=== PATIENT | male | born 1960 | race African-American/Black ===

== ENCOUNTER 2017-03-09 15:38 | Emergency (ER) | payer OTHER ==
--- NOTE | ~2017-03-09 | CR72 ---
[facility] A Service of [facility] & [facility] RADIOLOGY TEXT RESULTS PATIENT: BRIANA ALFORD LOCATION: [facility] : 58 UNIT #: [id number] AGE: [address]: Marc Mcarthur MD SEX: M ORDER DR: [id number] [facility] [address] [place], [place] [address] [id number] E MR#: [id number] Acc #: [id number] NAME: BRIANA ALFORD : 1960 SEX: M STUDY DATE/TIME: 03/09/2017 16:16 UNIT: [facility] ROOM: STUDY DESCRIPTION: CR Chest Single View Portable Attending Physician: Marc Mcarthur M.D. Ordering Physician: Marc Mcarthur M.D. Primary Care Physician: Riley Gomez M.D. MEDICAL IMAGING REPORT This report is preliminary unless electronic signature is present EXAM Portable chest HISTORY Shortness of air and left side chest pain for 2 months. FINDINGS A single AP portable view of the chest shows both lungs to be clear. The heart is normal in size. The mediastinal contour is normal. No significant bone abnormalities are seen. IMPRESSION Normal portable chest. Dictated by... Frank Garrison M.D. THIS IS AN ELECTRONICALLY VERIFIED REPORT Frank Garrison M.D. at 03/09/2017 10:50 PM DFL/mary TD: 03/09/2017 18:59 JOB #: [id number] MEDICAL IMAGING REPORT Page 1 of 1 COPY
--- NOTE | ~2017-03-09 | EKG ---
PATIENT: BRIANA ALFORD UNIT #: [id number] Ventricular Rate: 74 BPM Atrial Rate: 74 BPM P-R Interval: 134 ms QRS Duration: 92 ms Q-T Interval: 396 ms QTC Calculation(Bezet): 439 ms P Westover: 32 degrees Calculated R Westover: 12 degrees Calculated T Westover: 54 degrees Diagnosis Line: Normal sinus rhythm Diagnosis Line: Nonspecific T wave abnormality Diagnosis Line: Abnormal ECG Diagnosis Line: When compared with ECG of 22-MAR-2012 16:31, Diagnosis Line: ST no longer depressed in Anterior leads Diagnosis Line: Nonspecific T wave abnormality no longer evident Diagnosis Line: in Inferior leads Diagnosis Line: Confirmed by JESUS ASHLEY MD ([id number]) on Diagnosis Line: 03/10/2017 7:18:48 AM INTERPRETING : REBA
[~2017-03-09 15:38] MED LIST: CHEWABLE ASPIRI81 MG PO; HCTZ PO; LISINOPRIL PO; NITROGLYGERIN0.4 MG SL; NORCO 5/325 TAB1 TAB PO; NORVASC PO; TOPROL XL PO; ZITHROMAX PO
[2017-03-09 15:58] LABS: BASOPHIL# 0.1 X10e3 (0-0.3); EOSINOPHIL# 0.1 X10e3 (0-0.7); EOSINOPHIL% 1.8 % (0.0-7.0); HEMATOCRIT 41.3 % (38.0-50.0); HEMOGLOBIN 12.9 gm/dL (13.0-16.0); LYMPHOCYTE# 1.8 X10e3 (1.0-3.5); LYMPHOCYTE% 23.2 % (17.0-45.0); MEAN CELL VOLUME 85.8 FL (83-96); MEAN CORPUSCULAR HEMOGLOBIN 26.7 PG (28-34); MEAN CORPUSCULAR HGB CONC 31.2 g/dL (30-36); MEAN PLATELET VOLUME 7.1 FL (6.5-11.5); MONOCYTE# 0.8 X10e3 (0-1.0); MONOCYTE% 10.8 % (3.0-12.0); NEUTROPHIL# 4.9 X10e3 (1.5-7.1); NEUTROPHIL% 63.2 % (40-75); PLATELET COUNT 261 X10e3 (140-420); RED BLOOD COUNT 4.81 X10e (3.90-5.60); RED CELL DISTRIBUTION WIDTH 15.1 % (11.0-15.5); WHITE BLOOD COUNT 7.7 X10e3 (4.0-10.5)
[2017-03-09 16:00] LABS: DIFF IND NO
[2017-03-09 16:13] LABS: ALBUMIN SERUM 3.7 g/dL (3.5-5.0); ALKALINE PHOSPHATASE 129 U/L (32-92); ALT (SGPT) 32 U/L (10-40); AST (SGOT) 18 U/L (10-42); BILIRUBIN,TOTAL 0.8 mg/dL (0.2-2.0); BLOOD UREA NITROGEN 22 mg/dL (9-23); BUN/CREATININE RATIO 12.94; CALCIUM SERUM 11.1 mg/dL (8.4-10.2); CARBON DIOXIDE 21 mmol/L (22-31); CHLORIDE 112 mmol/L (100-111); CREATININE SERUM 1.7 mg/dL (0.6-1.4); GLOM FILT RATE Estimated 50.4 mL/min (>60); GLUCOSE FASTING 96 mg/dL (70-110); LIPASE 29 U/L (22-51); POTASSIUM 3.9 mmol/L (3.5-5.1); PROTEIN TOTAL SERUM 7.2 g/dL (6.0-8.3); SODIUM 138 mmol/L (135-145)
[2017-03-09 16:14] LABS: BILIRUBIN, DIRECT <0.1 mg/dL (0.0-0.2); BILIRUBIN,INDIRECT 0.7 mg/dL (0.0-0.9)
[2017-03-09 17:13] LABS: POC - CKMB 2.7 ng/mL (0.0-7.9); POC - TROPONIN 0.12 ng/mL (<=0.05)
[2017-03-09 17:37] LABS: URINE SOURCE CLEAN CATCH
[2017-03-09 17:42] LABS: URINE APPEARANCE CLEAR; URINE BILIRUBIN NEG (NEG); URINE BLOOD TRACE (NEG); URINE COLOR YELLOW; URINE GLUCOSE NEG (NEG); URINE KETONE NEG (NEG); URINE LEUKOCYTE ESTERASE 1+ (NEG); URINE NITRATE NEG (NEG); URINE PH 5.5 (5-8); URINE PROTEIN NEG (NEG); URINE SPECIFIC GRAVITY 1.022 (1.003-1.035)
[2017-03-09 17:45] LABS: CULTURE INDICATED? YES; U HYALINE CASTS AUWI 0-2 /[LPF]; URBCS1 AUWI 0-2 /[HPF] (0-2); URINE BACTERIA AUWI NEG (NEGATIVE); URINE SQUAMOUS EPITHELIAL CELL NONE SEEN /[HPF]; UWBCS1 AUWI 25-50 (0-5)
[2017-03-09 17:57] LABS: URINE CRYSTALS CALCIUM OXALATE /[HPF]
[2017-03-09 19:56] LABS: POC - TROPONIN 0.07 ng/mL (<=0.05)
[2017-03-09] MEDS ORDERED: NEURONTIN600 MG DOB (20:17)
[2017-03-09] MEDS ORDERED: FLEXERIL10 MG PO (20:18)
[2017-03-09] MEDS ORDERED: BUMEX2 MG PO (20:19)
[2017-03-09] MEDS ORDERED: SENSIPAR30 M1 PO (20:20)
[2017-03-09] MEDS ORDERED: PRINIVIL20 M1 PO (20:20)
[2017-03-09] MEDS ORDERED: PROMETHAZINE D118 ML PO (20:20)
== END 2017-03-09 22:50 | disposition home or self-care (01) ==
LOC: CED 15:38
PROVIDERS: Emergency Medicine
DX: R07.81 Pleurodynia (principal); N39.0 Urinary tract infection, site not specified; R53.1 Weakness; I10 Essential (primary) hypertension
CPT/HCPCS: 36415; 71010; 80048; 80076; 81003; 82553; 83690; 84484; 85025; 87086; 93005; 99285; J0696

== ENCOUNTER → 2017-03-12 | Outpatient (CLI) | payer OTHER ==
[~2017-03-12] MED LIST changes: +BUMEX2 MG PO; +FLEXERIL10 MG PO; +NEURONTIN600 MG DOB; +PRINIVIL20 M1 PO; +PROMETHAZINE D118 ML PO; +SENSIPAR30 M1 PO
--- NOTE | ~2017-03-12 | NM8 ---
[facility] A Service of [facility] & [facility] RADIOLOGY TEXT RESULTS PATIENT: BRIANA ALFORD LOCATION: [facility] : 58 UNIT #: [id number] AGE: [address]: Terrell Rowland MD SEX: M ORDER DR: [id number] [facility] [address] [place], [place] [address] [id number] O MR#: [id number] Acc #: [id number] NAME: BRIANA ALFORD : 1960 SEX: M STUDY DATE/TIME: 03/12/2017 14:33 UNIT: [facility] ROOM: STUDY DESCRIPTION: ME Bone or Joint Whole Body Attending Physician: Terrell Rowland M.D. Referring Physician: Terrell Rowland M.D. Ordering Physician: Terrell Rowland M.D. Primary Care Physician: Riley Gomez M.D. MEDICAL IMAGING REPORT This report is preliminary unless electronic signature is present EXAM Whole-body bone scan 03/12/2017 HISTORY Order states arthritis versus neoplasm. History sheet states right groin with leaking fluid. Pinhole sized leakage for 1.5 days. Blood in the urine. 2 groin lymph nodes. Mid back pain. Fell about a month ago. No bone or joint procedures. Right groin biopsy 5 years ago. Left upper quadrant pain. 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 Difficulty with balance and bilateral weakness. 2 right big toe fractures. History of gout in the big toe on the right. COMPARISON CT chest, abdomen and pelvis 03/11/2017, MRI lumbar spine 02/28/2017, left rib radiographs 01/17/2017 FINDINGS The patient received 22.7 mCi technetium 99-m MDP intravenously and anterior and posterior whole-body scans are supplemented by spot images of the calvarium and thorax. There is marked increased uptake in the 6th vertebral body corresponding with the CT abnormality from 03/11/2017. Findings are suspicious for neoplasm. There are no additional foci of abnormal uptake suspicious for neoplasm. Uptake in the maxilla and mandible is likely related to dental disease. Right greater than left knee uptake appears to involve the patellofemoral compartment. There is right greater than left foot uptake predominating in the right first MTP which is most commonly arthritic. [facility] [place] Service of [facility] & [facility] RADIOLOGY TEXT RESULTS PATIENT: BRIANA ALFORD LOCATION: [facility] : 58 UNIT #: [id number] AGE: [address]: Terrell Rowland MD SEX: M ORDER DR: Kidneys are visualized. IMPRESSION 1. Solitary focus of suspicious abnormal uptake corresponding to the T6 lesion noted on the CT of the chest from 03/11/2017. In correlation with the CT, neoplasm is likely. 2. Scattered areas of likely arthritic uptake. Dictated by... Sara Ruiz M.D. THIS IS AN ELECTRONICALLY VERIFIED REPORT Sara Ruiz M.D. at 03/14/2017 8:41 AM C/jude TD: 03/13/2017 15:06 JOB #: [id number] MEDICAL IMAGING REPORT Page 1 of 1 COPY
== END | disposition home or self-care (01) ==
LOC: CNUC 10:19
DX: D48.9 Neoplasm of uncertain behavior, unspecified (principal); R94.8 Abnormal results of function studies of other organs and systems
CPT/HCPCS: 78306; A9503

== ENCOUNTER → 2017-07-24 | Outpatient (CLI) | payer MEDICAID ==
--- NOTE | ~2017-07-24 | CT55 ---
[facility] A Service of [facility] RADIOLOGY TEXT RESULTS PATIENT: BRIANA ALFORD LOCATION: [facility] : 58 UNIT #: [id number] AGE: [address]: Adelina Hannah MD SEX: M ORDER DR: [id number] [facility] [address] [place], [place] [address] [id number] O MR#: [id number] Acc #: [id number] NAME: BRIANA ALFORD : 1960 SEX: M STUDY DATE/TIME: 07/24/2017 9:07 UNIT: [facility] ROOM: STUDY DESCRIPTION: CT Chest W Con Attending Physician: Adelina Hannah M.D. Referring Physician: Adelina Hannah M.D. Ordering Physician: Adelina Hannah M.D. Primary Care Physician: Riley Gomez M.D. MEDICAL IMAGING REPORT This report is preliminary unless electronic signature is present EXAM CT chest with contrast INDICATIONS Follow up lymphoma. TECHNIQUE CT of the chest performed with contrast. Coronal and sagittal reformatted images were obtained. This CT exam was performed with one or more of the following radiation dose reduction techniques: Automatic exposure control, adjustment of mA and/or kV according to patient size, and iterative reconstruction. COMPARISON 03/11/2017 FINDINGS There is no evidence for lymphadenopathy. There is no pleural effusion. There is no airspace consolidation or suspicious pulmonary nodule. Please refer to separately dictated CT of the abdomen and pelvis for findings below the diaphragm. Bone windows demonstrate interval T6 partial vertebral body resection with strut graft. Persistent sclerosis of the T6 vertebral body anteriorly. IMPRESSION No evidence for lymphadenopathy in the chest. Dictated by... Gomez Billingsley M.D. THIS IS AN ELECTRONICALLY VERIFIED REPORT [facility] A Service [facility] RADIOLOGY TEXT RESULTS PATIENT: BRIANA ALFORD LOCATION: [facility] : 58 UNIT #: [id number] AGE: [address]: Adelina Hannah MD SEX: M ORDER DR: Gomez Billingsley M.D. at 07/30/2017 11:20 AM CHARLI/mary TD: 07/25/2017 13:14 JOB #: [id number] MEDICAL IMAGING REPORT Page 1 of 1 COPY
--- NOTE | ~2017-07-24 | CT2 ---
[facility] A Service of [facility] & [facility] RADIOLOGY TEXT RESULTS PATIENT: BRIANA ALFORD LOCATION: [facility] : 58 UNIT #: [id number] AGE: [address]: Adelina Hannah MD SEX: M ORDER DR: [id number] [facility] [address] [place], [place] [address] [id number] O MR#: [id number] [facility] #: [id number] NAME: BRIANA ALFORD : 1960 SEX: M STUDY DATE/TIME: 07/24/2017 9:07 [facility] ROOM: STUDY DESCRIPTION: CT Abd and Pelv W Cont Attending Physician: Adelina Hannah M.D. Referring Physician: Adelina Hannah M.D. Ordering Physician: Adelina Hannah M.D. Primary Care Physician: Riley Gomez M.D. MEDICAL IMAGING REPORT This report is preliminary unless electronic signature is present EXAM CT of the abdomen and pelvis with contrast. INDICATIONS Followup lymphoma. TECHNIQUE CT scan of the abdomen and pelvis was performed following the administration of IV contrast. Coronal and sagittal reformatted images were obtained. This CT exam was performed with one or more of the following radiation dose reduction techniques: Automatic exposure control, adjustment of mA and/or kV according to patient size, and iterative reconstruction. COMPARISON 03/11/2017. FINDINGS Please refer to separately dictated CT of the chest for findings above the diaphragm. The liver is unremarkable. The gallbladder is unremarkable. The spleen is normal in size. Stable cysts within the kidneys, left greater than right. The adrenal glands are unremarkable. The pancreas is unremarkable. There is no evidence for lymphadenopathy. Pelvis: The colon is unremarkable. The appendix is normal. There is no free fluid. Decrease in size of a left iliac chain lymph node now measuring 1.6 cm in greatest dimension. Previously, it was 3.1 cm. The bone windows are unremarkable. IMPRESSION The left iliac chain lymph node has decreased in size now measuring 1.6 cm in greatest dimension. Previously, it measured 3.1 cm in greatest dimension. [facility] A Service of [facility] & [facility] RADIOLOGY TEXT RESULTS PATIENT: BRIANA ALFORD LOCATION: [facility] : 58 UNIT #: [id number] AGE: [address]: Adelina Hannah MD SEX: M ORDER DR: Dictated by... Gomez Billingsley M.D. THIS IS AN ELECTRONICALLY VERIFIED REPORT Gomez Billingsley M.D. at 07/30/2017 11:20 AM ARS/hever TD: 07/25/2017 12:49 JOB #: [id number] MEDICAL IMAGING REPORT Page 1 of 1 COPY
[2017-07-24 08:51] LABS: POC - CREATININE 1.58 mg/dL (0.64-1.27)
== END | disposition home or self-care (01) ==
LOC: CCAT 08:02
PROVIDERS: Internal Medicine Hematology
DX: C83.0 Small cell B-cell lymphoma (principal); N18.2 Chronic kidney disease, stage 2 (mild)
CPT/HCPCS: 71260; 74177; 82565; Q9967